=== PATIENT | female | born 1950 | race Caucasian/White ===

== ENCOUNTER 2017-04-18 00:45 | Inpatient (IN) ==
[2017-04-12 09:00] LABS: URINE MICRO REVIEW NEEDED? NO; URINE SOURCE CLEAN CATCH
[2017-04-12 09:10] LABS: BILIRUBIN URINE NEGATIVE (NEGATIVE); BLOOD URINE MODERATE (NEGATIVE); COLOR YELLOW; GLUCOSE URINE NEGATIVE (NEGATIVE); LEUKOCYTES URINE NEGATIVE (NEGATIVE); NITRITE URINE NEGATIVE (NEGATIVE); PH URINE 5.5; PROTEIN URINE NEGATIVE (NEGATIVE); SP GRAVITY URINE 1.018; TURBIDITY URINE CLEAR (CLEAR); UROBILINOGEN URINE NORMAL (NORMAL)
[2017-04-12 09:12] LABS: UR EPITHELIAL CELLS <10 /HPF (<10); URINE BACTERIA 1+ /HPF; URINE RBC <10 /HPF (<10); URINE WBC <10 /HPF (<10)
[2017-04-12 09:14] LABS: INR 0.97; PROTIME 10.2 Seconds (9.2-11.7); PTT 25.2 Seconds (22.0-36.0)
[2017-04-12 09:43] LABS: AGAP 18; BUN 16 mg/dL (8-22); CALCIUM 9.6 mg/dL (8.8-10.2); CHLORIDE 96 mmol/L (98-107); COSMO 284; POTASSIUM 4.7 mmol/L (3.5-5.1); SODIUM 140 mmol/L (136-145); TCO2 26 mmol/L (25-35)
[2017-04-18] MEDS ORDERED: LASIX PO PRN (07:07)
[2017-04-18] MEDS ORDERED: KLOR-CON POWDER PACKET PO PRN (07:07)
[2017-04-18] MEDS ORDERED: CELEBREX ONE (11:15)
[2017-04-18] MEDS ORDERED: PEPCID ONE (11:15)
[2017-04-18] MEDS ORDERED: LYRICA ONE (11:15)
[2017-04-18] MEDS ORDERED: REGLAN ONE (11:15)
[2017-04-18] MEDS ORDERED: COLACE ONE (11:15)
[2017-04-18] MEDS ORDERED: LR 1,000 ML ONE (11:16)
[2017-04-18] MEDS ORDERED: KEFZOL 2 GM/D5W 2 GM/50 ML IVPB ONE (11:16)
[2017-04-18 11:21] LABS: MANUAL DIFF NEEDED? NO
[2017-04-18 11:30] LABS: BASO% 0.5 % (0.0-0.8); EOS# 0.29 X1000 (0.0-0.7); EOS% 4.6 % (0.0-10.0); HEMATOCRIT 37.7 % (37.0-47.0); HEMOGLOBIN 12.4 g/dL (12.0-16.0); LYMPH# 1.69 X1000 (1.2-3.4); LYMPH% 26.6 % (20.5-51.1); MCH 31.4 PG (27-31); MCHC 32.9 g/dL (33-37); MCV 95.4 FL (81-99); MONO# 0.43 X1000 (0.11-0.59); MONO% 6.8 % (1.7-9.3); MPV 9.6 FL (7.4-10.4); NEUT% 61.5 % (42.2-75.2); PLT 227 X1000 (130-400); RBC 3.95 XMIL (4.2-5.4)
[2017-04-18] MEDS ORDERED: COREG ONE (11:33)
[2017-04-18] MEDS ORDERED: MARCAINE 0.25% PF ONE (13:56)
[2017-04-18] MEDS ORDERED: TORADOL ONE (13:56)
[2017-04-18] MEDS ORDERED: VANCOMYCIN ONE (13:56)
[2017-04-18] MEDS ORDERED: DURAMORPH ONE (13:56)
[2017-04-18] MEDS ORDERED: NEOSPORIN G.U. IRRIGANT ONE (13:57)
[2017-04-18] MEDS ORDERED: CYKLOKAPRON 1,000 MG/NS 1,000 MG/100 ML IVPB ONE ×2 (13:57→14:12)
[2017-04-18] MEDS ORDERED: EXPAREL 1.3% ONE (13:57)
[2017-04-18] MEDS ORDERED: SODIUM CHLORIDE 0.9% ONE (13:57)
[2017-04-18] MEDS ORDERED: DIPRIVAN 1% 500 MG/50 ML BOTTLE ONE (13:59)
[2017-04-18] MEDS ORDERED: VERSED ONE (14:06)
[2017-04-18] MEDS ORDERED: FENTANYL ONE (14:07)
[2017-04-18] MEDS ORDERED: NEO-SYNEPHRINE ONE (14:39)
[2017-04-18 15:30] LABS: URINE MICRO REVIEW NEEDED? NO; URINE SOURCE CATH
[2017-04-18 15:36] LABS: BILIRUBIN URINE NEGATIVE (NEGATIVE); BLOOD URINE SMALL (NEGATIVE); COLOR YELLOW; GLUCOSE URINE NEGATIVE (NEGATIVE); LEUKOCYTES URINE NEGATIVE (NEGATIVE); NITRITE URINE NEGATIVE (NEGATIVE); PROTEIN URINE NEGATIVE (NEGATIVE); TURBIDITY URINE CLEAR (CLEAR); UROBILINOGEN URINE NORMAL (NORMAL)
[2017-04-18 15:38] LABS: UR EPITHELIAL CELLS <10 /HPF (<10); URINE BACTERIA NEGATIVE /HPF; URINE RBC <10 /HPF (<10); URINE WBC <10 /HPF (<10)
[2017-04-18] MEDS ORDERED: NS 1,000 ML ONE (17:38)
[2017-04-18] MEDS ORDERED: ZOFRAN PO PRN (18:05)
[2017-04-18] MEDS ORDERED: MILK OF MAGNESIA PO PRN (18:05)
[2017-04-18] MEDS ORDERED: ZOFRAN IV PRN (18:05)
[2017-04-18] MEDS ORDERED: MORPHINE IV PRN (18:05)
[2017-04-18] MEDS: COREG PO SCH ×2 (18:33→21:01)
[2017-04-18] MEDS: CELEBREX PO SCH ×2 (18:33→21:02)
[2017-04-18] MEDS: GLUCOPHAGE XR PO SCH (18:33)
--- NOTE | 2017-04-18 19:23 | Diag Imaging Result Doc PS360 ---
EXAM: KNEE 1-2 VIEWS-RIGHT HISTORY: right TKA TECHNIQUE: Portable right knee, two views COMPARISON: None. FINDINGS: There has been recent orthopedic replacement of the right knee. There are anterior skin joy and there is a superior surgical drain. No fracture. No dislocation. IMPRESSION: Good alignment to the femoral and tibial components following orthopedic replacement of the knee. Electronically signed by Cortez Cunha 04/18/2017 7:21 PM
[2017-04-18] MEDS: NS 1,000 ML IV SCH (21:00)
[2017-04-18] MEDS ORDERED: LEXAPRO PO SCH (21:00)
[2017-04-18] MEDS ORDERED: LIPITOR PO SCH (21:00)
[2017-04-18] MEDS ORDERED: PRINIVIL PO SCH (21:00)
[2017-04-18] MEDS: OXY IR PO PRN (21:02)
[2017-04-18] MEDS: COLACE PO SCH (21:05)
[2017-04-18] MEDS ORDERED: KEFZOL 1 GM/D5W 1 GM/50 ML IVPB IV SCH (22:00)
[2017-04-18] MEDS ORDERED: KEFZOL 1 GM/D5W 1 GM/50 ML IVPB IV ONE (23:36)
[2017-04-19] MEDS: GLUCOPHAGE XR PO SCH ×2 (01:52→08:10)
--- NOTE | 2017-04-19 03:21 | OPERATIVE NOTE ---
PROCEDURE DATE: 04/18/2017 PREOPERATIVE DIAGNOSIS: Failed right total knee arthroplasty. POSTOPERATIVE DIAGNOSIS: Failed right total knee arthroplasty. PROCEDURE PERFORMED: Revision right total knee arthroplasty with a DePuy Sigma size 2.5 femoral component with a 31 universal femoral sleeve and a 75 x 16 universal fluted stem, and a size 2.5 tibial tray with a 37 mm metaphyseal sleeve and a 75 x 14 universal fluted stem, a 20 mm rotating platform tibial insert. SURGEON: Varinder Brown MD. LUSTERER: SASCHA Maher, who was critical for wound exposure, assistance with preparation of the bone for implants, implantation of the prosthesis, and wound closure. His assistance was critical for increasing efficiency and decreasing the anesthesia time. [employer]: Hammad Wright RN. ANESTHESIA: Spinal. IV FLUIDS: 2200 mL of lactated Ringer's. ESTIMATED BLOOD LOSS: 50 mL. TOURNIQUET TIME: 120 minutes at 350 mmHg. COMPLICATIONS: None. INDICATION: The patient is a pleasant, 67-year-old female who is status post right total knee arthroplasty who has had a chronic history of worsening pain and discomfort. X-rays revealed evidence of loosening of the tibial component. A recommendation to proceed with revision arthroplasty was offered. Risks and benefits of surgery were explained, including the risks of anesthesia, , bleeding, infection, failure to relieve pain, postoperative stiffness, nerve injury, blood clots, and other imponderables. All questions were answered. The patient and family wished to proceed with surgery. DETAILS OF OPERATION: The patient was taken to the operating room and placed supine on the operating table. Once adequate anesthesia was obtained, the patient's right lower extremity was subsequently prepped and draped in the usual sterile fashion. Esmarch was used to exsanguinate the right lower extremity and the tourniquet was inflated to 350 mmHg. A standard anterior incision was made with a skin knife. Medial and lateral skin envelopes were developed. A standard medial parapatellar arthrotomy was then performed. Retractors were then placed. Intraoperative cultures were obtained and a stat Gram stain was negative. After adequate dissection had been performed, debridement of the tissue was conducted with a rongeur. Inspection was 1st turned to the femoral component. It had obvious loosening and was easily removed. Osteotome was used to remove the bone cement. Prior to this, the polyethylene was removed initially. Attention was turned to the tibial tray where this had obvious loosening and was easily removed as well. The cement was removed with a small osteotome as well as resected in the proximal tibia, resection with a saw. After the remaining cement had been removed with a small osteotome, intramedullary reaming was conducted for the tibial side up to size 14 and the femoral side up to size 16. The proximal tibia was then overreamed as well as the distal femur. After this had been performed, broaching was conducted with the metaphyseal sleeve on the tibial side up to a size 37. It had good fit. It was countersunk a few millimeters and the proximal tibia was then resected flush with the superior aspect of the broach. Capsule sleeve broach was then removed. The trial component with the size 2.5 tibial tray, a 37 mm metaphyseal sleeve, and a 75 x 14 fluted stem was impacted in position and had good fit. After this had been performed, the intramedullary guide was then placed in the distal femur. The distal femoral cutting block was pinned in position. The distal cut was performed. The chamfer cutting block was then placed in position. The knee was placed in 90 degrees of flexion and the rotation was then set. The cutting block was pinned in position. Anterior, posterior, and chamfer cuts were then made. After this had been performed, a box cutting guide was then placed on the distal femur. The box cut was performed. Prior to cutting, the broach was used for the metaphyseal sleeve up to a size 31. All the broaches were then removed after the resection cuts had been made. The size 2.5 femoral component with the appropriate distal and posterior augmentation for the femoral component, and the 31 metaphyseal sleeve and a 75 x 16 universal fluted stem was impacted in position and had good fit. Trial femoral component was then placed. A 20 had excellent stability and range of motion. The trial components were then removed. Copious irrigation was performed with antibiotic pulsatile lavage while vancomycin was mixed with cement on the back table. The femoral and the tibial components were then constructed on the back table. Cement was then placed on the superior aspect of the tibia. This was followed by the tibial construct with a 2.5 tibial tray, 37 metaphyseal sleeve, and a 75 x 14 universal fluted stem. The cement was then impacted in position. Excess cement was removed with a Sage. Cement was then placed on the anterior aspect. Cement was then placed on the distal femur and the femoral construct was then impacted in position. It had good fit. Excess was removed with a Sage. A trial tibial insert was then placed in axial loading and full extension was maintained while cement cured. Some synovial tissue was excised off of the patella component. Exparel was placed in the deep soft tissue, as well as well as subcutaneous tissue. After the cement had cured, all the remaining cement was removed with a small osteotome. A 20 mm appeared to be the correct size. This was then removed. Exparel was placed in the deep posterior capsule. The wound was copiously irrigated. A 20 mm rotating platform tibial insert was then placed and had good stability, good range of motion, and good patellofemoral tracking. A 1/8 Hemovac drain was placed and was not sewn in. Copious irrigation was then performed once again with antibiotic pulsatile lavage. Number 1 Vicryl was used to repair the arthrotomy, followed by 2-0 Vicryl to repair the subcutaneous tissue, and skin joy. Adaptic, sterile 4 x 4s, Webril, cryo unit, and an Fercho wrap were applied to the right lower extremity. Patient tolerated the procedure well with no complications and was transferred to the recovery room in stable condition. cc: Varinder Brown MD
[2017-04-19] MEDS: NS 1,000 ML IV SCH ×2 (05:50→08:09)
[2017-04-19] MEDS: OXY IR PO PRN ×2 (05:51→10:45)
[2017-04-19] MEDS ORDERED: KEFZOL 2 GM/D5W 2 GM/50 ML IVPB IV ONE (06:00)
[2017-04-19] MEDS ORDERED: XARELTO PO SCH (06:00)
[2017-04-19 06:08] LABS: HEMOGLOBIN 10.7 g/dL (12.0-16.0)
[2017-04-19 06:39] LABS: AGAP 10; BUN 16 mg/dL (8-22); CALCIUM 8.8 mg/dL (8.8-10.2); CHLORIDE 103 mmol/L (98-107); COSMO 287; POTASSIUM 4.2 mmol/L (3.5-5.1); SODIUM 142 mmol/L (136-145); TCO2 29 mmol/L (25-35)
[2017-04-19] MEDS: COLACE PO SCH (08:10)
[2017-04-19] MEDS: COREG PO SCH (08:10)
--- NOTE | 2017-04-19 08:19 | PROGRESS NOTE ---
DATE: 04/19/2017 SUBJECTIVE: The patient is a 67-year-old female who is 1 day status post revision right total knee arthroplasty. She is currently resting comfortably this morning and has no complaints. PHYSICAL EXAMINATION: On physical exam, the patient's dressing is intact. Her calf is soft. She has active dorsiflexion and plantarflexion. She is neurovascularly distally. LABORATORY DATA: Her hemoglobin is 10.7, hematocrit is 34. IMPRESSION: Postoperative day #1, status post revision right total knee arthroplasty. PLAN: At this point, we will discontinue her drain and her [place], and change her dressing. We will also Hep-Lock her IV. We will plan on mobilizing with physical therapy. We will tentatively plan on discharging later today if she is mobilizing well. Patient will proceed with outpatient physical therapy. She will follow up in the office in 12-14 days. cc: Varinder Brown MD
[2017-04-19] MEDS ORDERED: PEPCID PO SCH (09:00)
[2017-04-19 11:40] VITALS: BP 120/58
== END 2017-04-19 12:03 | disposition home or self-care (01) ==
LOC: SURHOLD 00:45 → 4N 15:44
PROVIDERS: ADMIT Orthopaedic Surgery Adult Reconstructive Orthopaedic Surgery; ATTEND Orthopaedic Surgery Adult Reconstructive Orthopaedic Surgery